=== PATIENT | male | born 1955 | race Caucasian/White ===

== ENCOUNTER 2020-12-22 18:20 | Emergency (ER) | payer OTHER ==
[~2020-12-22 18:20] MED LIST: ADVAIR HFA 230/1 INH INH; AMBIEN10 MG PO; AMLODIPINE BESYL5 MG PO; GABAPENTIN600 MG PO; LOVAZA1 GM PO; PERCOCET 10-321 EACH PO; SPIRIVA18 MCG INH; TIZANIDINE HCL4 MG PO; VENTOLIN HFA 66.7 GM INH; VOLTAREN EC 7575 MG PO
[2020-12-22 20:23] LABS: RED BLOOD COUNT 5.17 M/UL (4.20-5.50); WHITE BLOOD COUNT 7.9 K/UL (4.5-11.0)
[2020-12-22 20:48] LABS: BUN/CREATININE RATIO 15 (0-10)
== END 2020-12-22 22:50 | disposition home or self-care (01) ==
LOC: ER1 18:20
PROVIDERS: Physician Assistant
DX: R04.2 Hemoptysis (principal); J44.9 Chronic obstructive pulmonary disease, unspecified; E78.5 Hyperlipidemia, unspecified; I10 Essential (primary) hypertension; Z85.118 Personal history of other malignant neoplasm of bronchus and lung; Z86.711 Personal history of pulmonary embolism; Z87.891 Personal history of nicotine dependence
CPT/HCPCS: 80053; 82550; 82553; 83874; 83880; 84484; 85025; 85610; 85730; 93005; 99284; Q9967